=== PATIENT | female | born 1950 | race Caucasian/White ===

== ENCOUNTER 2018-02-14 12:23 | Day surgery (SDC) | payer MEDICARE ==
[2018-02-14 13:34] LABS: #Basophils 0.1 thou/uL (0.0-0.2); #Eosinphils 0.1 thou/uL (0.0-0.7); #Lymphocytes 2.8 thou/uL (1.20-3.40); #Monocytes 0.6 thou/uL (0.11-0.59); #Neutrophils 4.4 thou/uL (1.40-6.50); %Basophils 0.9 % (0.0-1.0); %Eosinophils 1.3 % (0.0-10.0); %Lymphocytes 35.5 % (21.0-51.0); %Monocytes 6.9 % (0.0-10.0); %Neutrophils 55.4 % (42.0-75.0); Hemoglobin 13.8 g/dL (12.0-16.0); Mean Corpuscular HGB CONC 35.7 g/dL (32.0-36.0); Mean Corpuscular Hemoglobin 32.9 pg (27.0-31.0); Mean Corpuscular Volume 92.1 fL (78.0-98.0); Mean Platelet Volume 9.8 fL (7.4-10.4); Platelet Count 192 thou/uL (130-400); RBC Distribution Width 10.4 % (11.5-14.5); Red Blood Cell (RBC) Count 4.19 mill/uL (4.20-5.40); White Blood Cell (WBC) Count 7.9 thou/uL (4.8-10.8)
[2018-02-14] MEDS ORDERED: Lidocaine 1% PF 5 ML VIAL ONE (13:38)
[2018-02-14] MEDS ORDERED: PROPOFOL 200 MG/20 ML VIAL ONE (13:38)
--- NOTE | 2018-02-14 13:43 | RAD ---
PORTABLE CHEST 1 VIEW: Date: 02/14/18 Time: 1323 hours HISTORY: Chest pain. FINDINGS: The heart size is normal. The lungs are well expanded without focal areas of consolidation, pneumotho rax, or pleural effusions. IMPRESSION: No radiographic evidence of acute cardiopulmonary process. POS: OFF
[2018-02-14] MEDS ORDERED: Ondansetron HCl/PF 4 MG/2 ML Vial ONE ×2 (13:45→22:59)
[2018-02-14 13:46] LABS: ALT (SGPT) 15 U/L (8-55); AST (SGOT) 18 U/L (5-34); Albumin 4.5 g/dL (3.4-4.8); Alkaline Phosphatase 80 U/L (40-150); Anion Gap 15 mmol/L (10-20); BUN (Urea Nitrogen) 8 mg/dL (9.8-20.1); Bilirubin, Total 0.5 mg/dL (0.2-1.2); Calc. Creatinine Clearance 0 mL/min (70-130); Calcium 9.8 mg/dL (7.8-10.44); Carbon Dioxide 23 mmol/L (23-31); Chloride 101 mmol/L (98-107); Estimated GFR-MDRD 81; Globulin 3.1 g/dL (2.4-3.5); Glucose 100 mg/dL (80-115); Lipase 32 U/L (8-78); Potassium 3.6 mmol/L (3.5-5.1); Protein, Total 7.6 g/dL (6.0-8.3); Sodium 135 mmol/L (136-145)
[2018-02-14] MEDS ORDERED: Ondansetron ODT 8 MG TAB ONE (13:46)
--- NOTE | 2018-02-15 06:06 | OP ---
DATE OF PROCEDURE: 02/14/2018 PROCEDURE: Esophagogastroduodenoscopy with Avery dilation. PHYSICIAN: Dr. Sanchez. PAIN MEDICATION GIVEN: Per Anesthesiology Department. PREPROCEDURE DIAGNOSES: 1. Dysphagia. 2. Food impaction. POSTPROCEDURE DIAGNOSES: 1. No apparent food impaction. 2. LA grade C erosive esophagitis. 3. Otherwise normal upper endoscopy, status post esophageal dilatation with 50 and 54-Thai Avery dilators. PROCEDURE IN DETAIL: A written consent was obtained prior to procedure. After adequate sedation, th e forward-viewing endoscope was advanced down the stomach under direct vision to the second portion o f duodenum. The duodenum appeared normal. The pylorus was patent. The gastric antrum, body, fundus , and cardia all appeared normal. Retroflexion was normal. GE junction was located at 40 cm from th e incisors. LA grade C erosive esophagitis was noted in the lower 3-4 cm, the esophagus with probabl y a cobblestone appearance. The mid upper esophagus appeared normal. No food bolus was seen. There was no apparent stricture seen. The endoscope was removed. Empiric dilatation was performed using a 50-Thai Avery dilator with no resistance. Repeat endoscopy did not show any ____ blood. Furth er dilatation was performed using a 54-Thai dilator. Repeat endoscopy did not show any complicatio n. The stomach was then decompressed, the instruments were then fully removed. The patient tolerate d the procedure well. ASSESSMENT: 1. No apparent food bolus or impaction. 2. LA grade C erosive esophagitis. 3. Status post empiric dilatation with 50 and 54-Thai Avery. PLAN: 1. Pantoprazole 40 mg q.a.m. 2. Follow up GI Clinic in 2-3 weeks.
== END 2018-02-14 23:10 | disposition home or self-care (01) ==
LOC: SCSER 12:23 → ERS 15:00
PROVIDERS: ATTEND Internal Medicine Gastroenterology
PROC: 0D758ZZ Dilation of Esophagus, Via Natural or Artificial Opening Endoscopic (ICD-10-PCS; principal; 2018-02-14)
PROC: 0DJ08ZZ Inspection of Upper Intestinal Tract, Via Natural or Artificial Opening Endoscopic (ICD-10-PCS; 2018-02-14)
DX: K22.10 Ulcer of esophagus without bleeding (principal)
CPT/HCPCS: 71045; 80053; 83690; 85025; 96374; J1610; J2001; J2405; J2704